=== PATIENT | female | born 1975 | race Hispanic/Latino ===

== ENCOUNTER 2022-12-18 17:39 | Emergency (ER) | payer BC ==
[~2022-12-18] VITALS: Ht 167.6 cm; Wt 78.5 kg
[2022-12-18 18:31] LABS: CLARITY,URINE CLOUDY (CLEAR); COLOR,URINE YELLOW (YELLOW); KETONES,URINE NEGATIVE (NEGATIVE); LEUKOCYTE ESTERASE ,URINE NEGATIVE (NEGATIVE); NITRITE,URINE NEGATIVE (NEGATIVE); PROTEIN,URINE DIPSTICK NEGATIVE (NEGATIVE); URINE UROBILINOGEN 0.2 mg/dL (0.2 - 1)
[2022-12-18 18:46] LABS: EPITHELIAL CELLS,URINE MODERATE /LPF; WBC,URINE (MAN) 0-5 /HPF (0-5)
[2022-12-18 18:59] LABS: STREPTOCOCCUS GRP A ANTIGEN NEGATIVE (NEGATIVE)
[2022-12-18 19:35] VITALS: O2SAT 97
[2022-12-18] MEDS ORDERED: AZITHROMYCIN250 MG PO (19:36)
== END 2022-12-18 19:40 | disposition home or self-care (01) ==
LOC: ER 17:59
DX: R05.9 Cough, unspecified (principal); J40 Bronchitis, not specified as acute or chronic; R10.9 Unspecified abdominal pain
CPT/HCPCS: 71046; 81001; 83518; 87070; 99283; U0002